=== PATIENT | female | born 1980 | race Two or more races ===

== ENCOUNTER 2023-01-18 07:43 | Emergency (ER) | payer OTHER ==
[~2023-01-18] VITALS: Ht 165.1 cm; Wt 90.7 kg
[2023-01-18 07:51] VITALS: BP 147/98; TEMP 98.2
[2023-01-18] MEDS ORDERED: NITR100C15 PO (08:00)
[2023-01-18] MEDS ORDERED: NEOM10DR11 RIGHT EAR (08:00)
[2023-01-18 08:15] LABS: APPEARANCE,URINE CLOUDY (CLEAR); BILIRUBIN,URINE 1+ (NEGATIVE); BLOOD, URINE 3+ Ery/uL (NEGATIVE); COLOR,URINE DARK YELLOW (YELLOW); KETONES,URINE TRACE mg/dL (NEGATIVE); LEUKOCYTE ESTERASE ,URINE 3+ (NEGATIVE); NITRITE, URINE NEGATIVE (NEGATIVE); PROTEIN,URINE 2+ mg/dl (NEGATIVE); UGLUCOSE NEGATIVE (NEGATIVE)
[2023-01-18 08:17] VITALS: O2SAT 98
[2023-01-18 08:18] LABS: PREGNANCY TEST URINE QUAL NEGATIVE (NEGATIVE)
[2023-01-18 08:19] LABS: ADD URINE CULTURE YES; BACTERIA,URINE Few /HPF (None Seen); RBC,URINE 21-50 /HPF (0-2); SQUAMOUS EPITHELIAL CELL,UR Rare /HPF (None Seen)
== END 2023-01-18 08:17 | disposition home or self-care (01) ==
LOC: ER 07:50
DX: N39.0 Urinary tract infection, site not specified (principal); H60.91 Unspecified otitis externa, right ear
CPT/HCPCS: 81001; 84703-TC; 87086-TC